=== PATIENT | female | born 1940 | race Caucasian/White ===

== ENCOUNTER 2016-11-21 13:59 | Emergency (ER) | payer MEDICARE, OTHER ==
[~2016-11-21 13:59] MED LIST: ASPIR 8181 MG PO; ATROVENT-HFA12.9 GM INH; CRESTOR40 MG PO; DILTIAZEM ER240 M1 PO; FOLBIC RF TABL1 EACH INJ; GENTAMICIN 0.33.5 GM TOP; JANTOVEN5 MG PO; LABETALOL HCL100 MG PO; NEPRO CARB ST1000 ML PO; PHOSLO 667 MG667 MG PO; PRILOSEC OTC20 MG PO; SYNTHROID50 MCG PO; VENTOLIN/PROVE0.5 ML INH
[2016-11-21 15:08] LABS: HEMOGLOBIN 10.1 gm/dl (12.3-15.3); RED BLOOD COUNT 3.56 M/UL (4.00-5.10); WHITE BLOOD COUNT 7.6 K/UL (4.5-11.0)
[2017-04-01] MEDS ORDERED: PHOSLO 667 MG667 MG GT (01:23)
[2017-04-01] MEDS ORDERED: RENVELA800 MG PO ×2 (01:24→09:48)
[2017-04-01] MEDS ORDERED: COUMADIN5 MG PO (01:25)
[2017-04-01] MEDS ORDERED: CARDIZEM CD240 MG PO (01:25)
[2017-04-01] MEDS ORDERED: LABETALOL HCL100 MG PO ×2 (01:26→09:55)
[2017-04-01] MEDS ORDERED: OMEPRAZOLE20 MG PO (01:26)
[2017-04-01] MEDS ORDERED: SYNTHROID50 MCG PO (01:27)
[2017-04-01] MEDS ORDERED: CRESTOR10 MG PO (01:28)
[2017-04-01] MEDS ORDERED: ASPIR 8181 MG PO (01:29)
[2017-04-01] MEDS ORDERED: CALCIUM 600 +1 EACH PO (01:31)
[2017-04-01] MEDS ORDERED: FOLIC ACID0.4 MG PO (10:58)
== END 2016-11-21 18:00 | disposition home or self-care (01) ==
LOC: ER1 13:59
PROVIDERS: Emergency Medicine
DX: I12.0 Hypertensive chronic kidney disease with stage 5 chronic kidney disease or end stage renal disease (principal); N18.6 End stage renal disease; J81.1 Chronic pulmonary edema; J90 Pleural effusion, not elsewhere classified; I48.91 Unspecified atrial fibrillation; J44.9 Chronic obstructive pulmonary disease, unspecified; D64.9 Anemia, unspecified; R79.1 Abnormal coagulation profile; I25.810 Atherosclerosis of coronary artery bypass graft(s) without angina pectoris; Z79.01 Long term (current) use of anticoagulants; Z99.81 Dependence on supplemental oxygen; Z99.2 Dependence on renal dialysis; Z95.1 Presence of aortocoronary bypass graft; Z79.899 Other long term (current) drug therapy
CPT/HCPCS: 36415; 36600; 71010; 80053; 82803; 83880; 84443; 84484; 85025; 85610; 93005; 94640; 94664; 96374; 99284; J2930

== ENCOUNTER 2016-11-23 16:20 | Inpatient (IN) | payer MEDICARE, OTHER ==
[~2016-11-23] VITALS: Ht 162.6 cm; Wt 68.7 kg
[2016-11-23 17:12] LABS: HEMOGLOBIN 10.2 gm/dl (12.3-15.3); RED BLOOD COUNT 3.63 M/UL (4.00-5.10)
[2016-11-23 17:14] LABS: WHITE BLOOD COUNT 11.6 K/UL (4.5-11.0)
[2016-11-23] MEDS ORDERED: FOLIC ACID0.4 MG PO (20:29)
[2016-11-23] MEDS ORDERED: CALCITRIOL0.5 MCG PO (20:31)
[2016-11-23] MEDS ORDERED: VENTOLIN HFA 66.7 GM INH (20:43)
[2016-11-24 03:54] LABS: HEMOGLOBIN 10.2 gm/dl (12.3-15.3); RED BLOOD COUNT 3.61 M/UL (4.00-5.10)
[2016-11-24 03:57] LABS: WHITE BLOOD COUNT 7.5 K/UL (4.5-11.0)
[2016-11-24 14:10] LABS: TOTAL PROTEIN, BODY FLUID 0.7 gm/dL
[2016-11-25 03:54] LABS: HEMOGLOBIN 9.6 gm/dl (12.3-15.3); RED BLOOD COUNT 3.43 M/UL (4.00-5.10)
[2016-11-25 03:55] LABS: WHITE BLOOD COUNT 12.7 K/UL (4.5-11.0)
[2016-11-25] MEDS ORDERED: NEPRO CARB ST1000 ML PO (10:09)
[2016-11-25] MEDS ORDERED: OSTERA TABLET1 EACH PO (10:11)
[2016-11-25] MEDS ORDERED: COUMADIN 5MG TAB5 MG PO (10:13)
[2016-11-25] MEDS ORDERED: VITAMIN D 11000 UNIT PO (10:22)
[2016-11-25] MEDS ORDERED: NITROSTAT 0.40.4 MG SL (10:28)
[2017-04-01] MEDS ORDERED: PHOSLO 667 MG667 MG GT (01:23)
[2017-04-01] MEDS ORDERED: RENVELA800 MG PO ×2 (01:24→09:48)
[2017-04-01] MEDS ORDERED: CARDIZEM CD240 MG PO (01:25)
[2017-04-01] MEDS ORDERED: COUMADIN5 MG PO (01:25)
[2017-04-01] MEDS ORDERED: OMEPRAZOLE20 MG PO (01:26)
[2017-04-01] MEDS ORDERED: LABETALOL HCL100 MG PO ×2 (01:26→09:55)
[2017-04-01] MEDS ORDERED: SYNTHROID50 MCG PO (01:27)
[2017-04-01] MEDS ORDERED: CRESTOR10 MG PO (01:28)
[2017-04-01] MEDS ORDERED: ASPIR 8181 MG PO (01:29)
[2017-04-01] MEDS ORDERED: CALCIUM 600 +1 EACH PO (01:31)
[2017-04-01] MEDS ORDERED: FOLIC ACID0.4 MG PO (10:58)
== END 2016-11-25 17:36 | disposition home or self-care (01) | DRG 291 ==
LOC: ER1 16:20 → PROG CARE 20:12 → ZEROF 20:12 → PROG CARE 20:30
PROVIDERS: Emergency Medicine; ADMIT Family Medicine
PROC: 5A09457 Assistance with Respiratory Ventilation, 24-96 Consecutive Hours, Continuous Positive Airway Pressure (ICD-10-PCS; 2016-11-23)
PROC: 0W993ZZ Drainage of Right Pleural Cavity, Percutaneous Approach (ICD-10-PCS; principal; 2016-11-24)
PROC: 30233K1 Transfusion of Nonautologous Frozen Plasma into Peripheral Vein, Percutaneous Approach (ICD-10-PCS; 2016-11-24)
DX: I13.2 Hypertensive heart and chronic kidney disease with heart failure and with stage 5 chronic kidney disease, or end stage renal disease (principal); J96.22 Acute and chronic respiratory failure with hypercapnia; N18.6 End stage renal disease; E87.2 Acidosis; J44.1 Chronic obstructive pulmonary disease with (acute) exacerbation; I50.32 Chronic diastolic (congestive) heart failure; I47.2 Ventricular tachycardia; E87.4 Mixed disorder of acid-base balance; J91.8 Pleural effusion in other conditions classified elsewhere; E86.1 Hypovolemia; R79.1 Abnormal coagulation profile; Z99.2 Dependence on renal dialysis; I25.10 Atherosclerotic heart disease of native coronary artery without angina pectoris; E78.5 Hyperlipidemia, unspecified; M81.0 Age-related osteoporosis without current pathological fracture; E87.5 Hyperkalemia; M10.9 Gout, unspecified; I48.2 Chronic atrial fibrillation; D64.9 Anemia, unspecified; Z98.890 Other specified postprocedural states; Z79.01 Long term (current) use of anticoagulants; Z86.73 Personal history of transient ischemic attack (TIA), and cerebral infarction without residual deficits; Z82.49 Family history of ischemic heart disease and other diseases of the circulatory system; Z80.1 Family history of malignant neoplasm of trachea, bronchus and lung; Z79.82 Long term (current) use of aspirin; Z88.8 Allergy status to other drugs, medicaments and biological substances; Z90.710 Acquired absence of both cervix and uterus; Z95.1 Presence of aortocoronary bypass graft
CPT/HCPCS: 36415; 36600; 71010; 71020; 71250; 80048; 80053; 81001; 82550; 82553; 82803; 82945; 83615; 83735; 83874; 83880; 84157; 84443; 84484; 85025; 85027; 85610; 85730; 86850; 86900; 86901; 86927; 87070; 87205; 90935; 90937; 93005; 94640; 94660; 94664; 96372; 96374; 99284; 99291; J2930; J3430; J7030; P9017

== ENCOUNTER → 2016-12-04 | Outpatient (CLI) | payer MEDICARE, OTHER ==
[~2016-12-04] MED LIST changes: +CALCITRIOL0.5 MCG PO; +CALCIUM 600 +1 EACH PO; +CARDIZEM CD240 MG PO; +COUMADIN 5MG TAB5 MG PO; +COUMADIN5 MG PO; +CRESTOR10 MG PO; +FOLIC ACID0.4 MG PO; +NITROSTAT 0.40.4 MG SL; +OMEPRAZOLE20 MG PO; +OSTERA TABLET1 EACH PO; +PHOSLO 667 MG667 MG GT; +RENVELA800 MG PO; +VENTOLIN HFA 66.7 GM INH; +VITAMIN D 11000 UNIT PO
== END ==
LOC: RAD 10:27
DX: J90 Pleural effusion, not elsewhere classified (principal); R91.8 Other nonspecific abnormal finding of lung field
CPT/HCPCS: 71020

== ENCOUNTER → 2017-01-20 | Outpatient (CLI) | payer MEDICARE, OTHER | LOC: RAD 13:00 | DX: J90 Pleural effusion, not elsewhere classified (principal); J84.9 Interstitial pulmonary disease, unspecified | CPT/HCPCS: 71020 ==

== ENCOUNTER → 2017-02-05 | Outpatient (CLI) | payer MEDICARE, OTHER | LOC: HEART 5 15:07 | DX: J90 Pleural effusion, not elsewhere classified (principal); R06.02 Shortness of breath | CPT/HCPCS: 94060; 94729 ==

== ENCOUNTER → 2017-02-27 | Outpatient (CLI) | payer MEDICARE, OTHER | LOC: RAD 10:14 | DX: R09.1 Pleurisy (principal); N18.6 End stage renal disease; I25.10 Atherosclerotic heart disease of native coronary artery without angina pectoris; R91.8 Other nonspecific abnormal finding of lung field | CPT/HCPCS: 71020 ==